=== PATIENT | female | born 1985 | race Two or more races ===

== ENCOUNTER 2020-01-12 17:32 | Emergency (ER) | payer OTHER ==
[~2020-01-12] VITALS: Ht 162.6 cm; Wt 76.5 kg
--- NOTE | 2020-01-12 17:37 | PHYS DOC ---
Adult General Chief Complaint Chief Complaint: "..I got my flu shot.. have been traveling from [facility].. but I feel like I got the flu symtoms.. the last couple days..." HPI HPI Patient is a 34 year old female who presents with above hx and complaints of flu symptoms. Fever, chills, malaise, arthralgia, myalgia, nonproductive cough and pharyngitis.. Patient has not interpretation [facility]. No specific ill contacts. Patient normally follows at [facility]. Patient did receive her flu vaccination this season. Patient is normally healthy. Patient symptoms have been present approximately 24 hours maximum of 48 hours. Review of Systems Review of Systems Constitutional: History of fever or chills [] Eyes: Denies change in visual acuity, redness, or eye pain [] HENT: History of nasal congestion and sore throat [] Respiratory: Nonproductive cough Cardiovascular: No additional information not addressed in HPI [] GI: Denies abdominal pain, nausea, vomiting, bloody stools or diarrhea [] : Denies dysuria or hematuria [] Musculoskeletal: Myalgia and arthralgia[] Integument: Denies rash or skin lesions [] Neurologic: Denies headache, focal weakness or sensory changes [] Endocrine: Denies polyuria or polydipsia [] All other systems were reviewed and found to be within normal limits, except as documented in this note. Family History Family History Noncontributory to presentation Current Medications Current Medications See nursing for home meds Allergies Allergies No known drug allergies Physical Exam Physical Exam Constitutional: Well developed, well nourished, moderate acute distress, non- toxic appearance. [] HENT: Normocephalic, atraumatic, bilateral external ears normal, oropharynx moist, postnasal drainage and pharyngeal erythema no oral exudates, nose swollen turbinates and clear rhinorrhea Eyes: PERRLA, EOMI, conjunctiva normal, no discharge. [] Neck: Normal range of motion, no tenderness, supple, no stridor. [] Cardiovascular: Tachycardia Heart rate regular rhythm, no murmur [] Lungs & Thorax: Bilateral breath sounds equal apex with scattered wheezes on auscultation [] Abdomen: Bowel sounds normal, soft, no tenderness, no masses, no pulsatile m asses. [] Skin: Warm, dry, no erythema, no rash. [] Back: No tenderness, no CVA tenderness. [] Extremities: No tenderness, no cyanosis, no clubbing, ROM intact, no edema. [] Neurologic: Alert and oriented X 3, normal motor function, normal sensory function, no focal deficits noted. [] Psychologic: Affect anxious, judgement normal, mood normal. [] EKG EKG [] Radiology/Procedures Radiology/Procedures [] Course & Med Decision Making Course & Med Decision Making Pertinent Labs and Imaging studies reviewed. (See chart for details) Gargle with Listerine 4 times a day. Push Fluids. Take Tylenol and ibuprofen for discomfort. For marked discomfort may take Vicoprofen up 4 times a day. Take Tamiflu 75 mg twice daily for 5 days. Follow-up at [facility]. Return if any concerns. Take Tamiflu 8 mg up 4 times a day for active vomiting. Use MDI 2 puffs 4 times a day. [] Dragon Disclaimer Dragon Disclaimer This electronic medical record was generated, in whole or in part, using a voice recognition dictation system. Departure Departure: Disposition: 01 HOME/RESIDENCE PRIOR TO ADM Condition: STABLE Referrals: PCP,NO (PCP) Scripts Ibuprofen (IBUPROFEN IB) 200 Mg Tablet 400 MG PO QIDPRN PRN for fever and discomfort, #120 TAB Prov: SHRUTI SOLORZANO MD 01/12/20 Acetaminophen (ACETAMINOPHEN) 500 Mg Tablet 1000 MG PO qidp for fever and discomfort, #120 TAB Prov: SHRUTI SOLORZANO MD 01/12/20 Ondansetron Hcl (ZOFRAN) 8 Mg Tablet 8 MG PO 4 times a day \\prn for active vomiting, #30 BOTTLE Prov: SHRUTI SOLORZANO MD 01/12/20 Hydrocodone/Ibuprofen (HYDROCODONE-IBUPROFEN 7.5-200 ) 1 Each Tablet 1 TAB PO PRN Q6HRS PRN for PAIN, #30 TAB 0 Refills Prov: SHRUTI SOLORZANO MD 01/12/20 Oseltamivir Phosphate (TAMIFLU) 75 Mg Capsule 75 MG PO twice a day for influenza a for 5 Days, CAP Prov: SHRUTI SOLORZANO MD 01/12/20 Dragon Disclaimer This chart was dictated in whole or in part using Voice Recognition software in a busy, high-work load, and often noisy Emergency Department environment. It may contain unintended and wholly unrecognized errors or omissions. Dragon Disclaimer This chart was dictated in whole or in part using Voice Recognition software in a busy, high-work load, and often noisy Emergency Department environment. It may contain unintended and wholly unrecognized errors or omissions. SHRUTI SOLORZANO MD Jan 12, 2020 17:37
[2020-01-12 18:37] LABS: INFLUENZA A PATIENT POSITIVE (NEGATIVE); INFLUENZA B PATIENT NEGATIVE (NEGATIVE)
[2020-01-12] MEDS ORDERED: OSELTAMIVIR 75 MG CAPSULE PO ONE (18:45)
[2020-01-12] MEDS ORDERED: ONDA8TAB9 PO (18:51)
[2020-01-12] MEDS ORDERED: ACET500T68 PO (18:51)
[2020-01-12] MEDS ORDERED: OSEL75CA PO (18:51)
[2020-01-12] MEDS ORDERED: HYDR-1179 PO (18:51)
[2020-01-12] MEDS ORDERED: IBUP-4 PO (18:52)
[2020-01-12] MEDS ORDERED: ACETAMINOPHEN 500 MG TABLET PO ONE (19:00)
[2020-01-12] MEDS ORDERED: ALBUTEROL SULFATE 8GM INHALER. INH ONE (19:00)
[2020-01-12] MEDS ORDERED: predniSONE 10 MG TABLET PO ONE (19:00)
[2020-01-12 19:05] VITALS: BP 121/76
== END 2020-01-12 19:17 | disposition home or self-care (01) ==
LOC: ER 17:32
DX: R50.9 Fever, unspecified (principal); R05 Cough; M79.10 Myalgia, unspecified site
CPT/HCPCS: 87070; 87804; 87880; 99284; J7512; J7613